=== PATIENT | female | born 1955 | race Caucasian/White ===

== ENCOUNTER 2022-08-29 08:09 | Emergency (ER) | payer MEDICARE ==
[2022-08-29 08:17] VITALS: BP 113/62
--- NOTE | 2022-08-29 09:19 | XRAY Report ---
PROCEDURE: Wrist 4 View LT INDICATIONS: Trauma TECHNIQUE: 4 views of the wrist were acquired. COMPARISON: None FINDINGS: Bones: No fractures or dislocations. No suspicious bony lesions. Scaphoid view: Unremarkable Soft tissues: No suspicious soft tissue calcifications. IMPRESSION: Minimal soft tissue swelling without fracture or foreign body Reviewed by: Kem Stallings MD on 08/29/2022 8:18 AM [facility] Approved by: Kem Stallings MD on 08/29/2022 8:18 AM [facility] Station ID: [id number]
--- NOTE | 2022-08-29 10:21 | ED Physician Documentation ---
History of Present Illness - Stated complaint Stated Complaint: LT WRIST INJ - Chief complaint Chief Complaint: Trauma Ext - Additonal information Additional information: Patient is a 77-year-old female presenting to the emergency department with left wrist and back pain. Tripped and fell on her outstretched hand yesterday well watching her neighbors dog. Also reports that she fell back and struck her back. She denies any head trauma or loss of consciousness. Denies use of blood thinning medications. Review of Systems Ten Systems: 10 systems reviewed and negative Constitutional: denies: Fever Eyes: denies: Loss of vision Ears: denies: Loss of hearing Nose: denies: Rhinorrhea / runny nose Throat: denies: Dental pain / toothache Cardiac: denies: Chest pain / pressure Respiratory: denies: Dyspnea GI: denies: Abdominal Pain : denies: Dysuria Skin: denies: Rash Musculoskeletal: reports: Back pain PD PAST MEDICAL HISTORY - Allergies Allergies/Adverse Reactions: Allergies Allergy/AdvReac Type Severity Reaction Status Date / Time midazolam [From Versed] Allergy Respiratory Verified 08/29/22 08:17 Sulfa (Sulfonamide Allergy Hives Verified 08/29/22 08:17 Antibiotics) PD ED PE NORMAL - Vitals Vital signs reviewed: Yes - General General: Alert and oriented X 3, No acute distress, Well developed/nourished - HEENT HEENT: Atraumatic, PERRL, EOMI, Ears normal - Neck Neck: Supple, no meningeal sign, No bony TTP - Female Female : Deferred - Rectal Rectal: Deferred - Back Back: No spinal TTP, Other (Right-sided low paraspinal muscle tenderness to palpation.) - Derm Derm: Normal color - Extremities Extremities: No deformity, Other (Tenderness to palpation to the dorsum of the right wrist. There is no anatomic snuffbox tenderness. Normal range of motion with flexors and extensors to the right hand. Radial and ulnar pulses are palpable. Normal sensation distal to the site of injury.) Results - Vitals Vitals: Vital Signs - 24 hr 08/29/22 08:15 Temperature 36.1 C L Heart Rate 54 L Respiratory 16 Rate Blood Pressure 113/62 O2 Saturation 98 PD MEDICAL DECISION MAKING - ED course Complexity details: reviewed results, d/w patient ED course: 67-year-old female presenting to the emergency department with wrist and back pain after fall that occurred yesterday. Afebrile, hematin stable on arrival to the emergency department. Ecchymosis noted to the distal aspect of the right wrist with normal pulses and normal sensation distal to site of injury. No anatomic snuffbox tenderness was appreciated on exam. She also had some mild right lumbar paraspinal muscle tenderness to palpation with some ecchymosis and swelling in this area. X-rays to the right wrist and lumbar spine are benign. Provided with Velcro wrist splint here in the emergency department. Will encourage use of Motrin and Tylenol at home. Will encourage careful follow-up with primary pediatrics. Encouraged return to the emergency department for new or worsening symptoms. Departure - Departure Disposition: Home, Self Care Clinical Impression: Fall, Wrist pain, Back pain Instructions: IBUPROFEN (Adult), ED Neck Back Pain General Comments: Thank you for allowing us to care for you today [facility]. Today in the emergency department your evaluated for any possible life- threatening medical emergency. The x-rays to your right wrist and low back did not show any fracture. The x-rays to your low back did show some age-related degenerative changes to your lumbar spine. I would like you to use Motrin and Tylenol at home for pain control. Please continue to use the wrist splint provided here in the emergency department as needed for pain control as well. If your symptoms show no improvement over the course of the next 7 days it will be important for you to either follow-up with your primary care doctor or return to the emergency department for repeat evaluation. If it anytime you develop any new or worsening symptoms please not hesitate to return.
--- NOTE | 2022-08-29 12:32 | XRAY Report ---
PROCEDURE: Lumbar Spine 2 View INDICATIONS: fall, pain TECHNIQUE: 2 views of the lumbar spine were acquired. COMPARISON: None. FINDINGS: Bones: 5 [id number] vertebrae are present. There is normal bony alignment. No vertebral body compression fractures. No suspicious bony lesions. Disc space narrowing and facet arthropathy noted lower lumbar spine Soft tissues: Overlying bowel gas pattern is normal. No suspicious soft tissue calcifications. IMPRESSION: Degenerative disc disease and arthropathy without fracture or traumatic malalignment Reviewed by: Kem Stallings MD on 08/29/2022 11:30 AM [facility] Approved by: Kem Stallings MD on 08/29/2022 11:30 AM [facility] Station ID: [id number]
== END 2022-08-29 12:55 | disposition home or self-care (01) ==
LOC: ED 08:09
DX: S69.92XA Unspecified injury of left wrist, hand and finger(s), initial encounter (principal); S29.9XXA Unspecified injury of thorax, initial encounter; W18.30XA Fall on same level, unspecified, initial encounter
CPT/HCPCS: 99282; 99284